=== PATIENT | male | born 1955 | race Caucasian/White ===

== ENCOUNTER → 2016-10-09 | Day surgery (SDC) | payer BC ==
[~2016-10-09] VITALS: Ht 170.2 cm; Wt 66.0 kg
[~2016-10-09] MED LIST: ACETAMINOPHEN 325 MG TAB PO PRN; ASCO500T3 PO; ASPI81TA28 PO; ATROPINE SULFATE 0.1 MG/ML 5ML SYR IV PRN; DC ALL ANTICOAGULANTS ONE; FENTANYL CITRATE INJ 50 MCG/1 ML 2 ML VIAL ONE; HEPARIN SOD (PORCINE) 1000 UNIT/ML 10 ML VIAL ONE; MIDAZOLAM HCL 1 MG/ML 2ML VIAL ONE; NITROGLYCERIN/D5W 100MCG/ML 20ML SYR ONE; NiCARDipine HCL INJ 2.5 MG/ML 10 ML AMP ONE; OMEG10007 PO; ONDANSETRON INJ 2 MG/ML 2 ML VIAL IV PRN; SODIUM CHLORIDE 0.9% 1000ML 1,000 ML IV SCH; SODIUM CHLORIDE 0.9% 1000ML 250 ML IV PRN; TUMERIC PO; ZINC50CA3 PO
[2016-10-09 09:08] VITALS: BP 161/101; PULSE 94; TEMP 36.6; O2SAT 96; Ht 170.2 cm; Wt 66.0 kg
--- NOTE | 2016-10-09 11:12 | History & Physical Bridge Note ---
H&P Re-Evaluation Bridge Note: I have examined the patient, reviewed the History & Physical and in the interval since the performance of the History & Physical I have noted the following changes of clinical significance: No changes noted
--- NOTE | 2016-10-09 11:22 | Cardiac Catheterization ---
Procedure Note Procedure Date Oct 09, 2016. Pre-Procedure Diagnosis Valvular Disease AUC Score 9 Post-Procedure Diagnosis Normal Coronary Arteries Procedure(s) Performed Coronary Angiography, Left Heart Cath, Right Heart Cath, LV Angiography, Aortography Early Childhood Education Instructor Dr. 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 ACC Data Cardiac Status Clinical evaluation leading to the procedure CAD Presntation: Stable angina Anginal Classification: CCS II Heart Failure: No Cardiogenic Shock w/in 24Hrs: No Cardiac Arrest w/in 24Hrs: No Imaging studies past 6 months: Yes Stress studies past 6 months: No Coronary Anatomy Dominant: Right Left Main (% Stenosis): Normal LAD (% Stenosis): Normal Circumflex (% Stenosis): Normal RCA (% Stenosis): Normal Left Ventricular Angiography EF (%): 60 Mitral Regurgitation: None Aortography Aortic Regurgitation: 1+ Diagnostic Physician's Name: Ricardo Montero, DO Status: Elective Closure Device Percutaneous Entry Location: Femoral Closure Device: none - manual hold Recommendations: valve replacement
--- NOTE | 2016-10-09 11:25 | Discharge Instructions ---
Discharge Instructions Procedure Procedure Date: Oct 09, 2016. Reason for Visit: Pre Op For Valve Replacement *Dr Montero Doing*. Discharge Discharge Date: Oct 09, 2016. Discharge Diagnosis: aortic stenosis Last Recorded Wt (Kilograms): 66 Anesthesia Post Anesthesia Instructions: If you have had General Anesthesia or IV Sedation: * Do not drive today. * Resume driving when surgeon permits. * Do not make important decisions or sign legal documents today. * Call surgeon for: 1. Temperature elevations greater than 101 degrees F. 2. Uncontrollable pain. 3. Excessive bleeding. 4. Persistent nausea and vomiting. 5. Medication intolerance (nausea, vomiting or rash). * For nausea and vomiting use only clear liquids such as: tea, soda, bouillon until nausea subsides, then gradually increase diet as tolerated. * If you have any concerns or questions, call your surgeon's office. If physician is unavailable and it is an emergency, call 911 or go to the nearest emergency room. Instructions Activity Recommendations: limitations Recommended Home Diet: resume previous diet Allergies: Coded Allergies: No Known Allergies (Unverified , 10/09/16) Provider Instructions ACTIVITY RECOMMENDATIONS: It is common to feel weak and fatigue for a few days. * Do not drive or operate any motorized equipment for the next three days. * Limit stair usage (2 or 3 trips a day only) for the next three days. * Do not lift anything heavier than 10 pounds for the next three days. * Do not engage in vigorous exercise or any sports for the next five days. * You may shower the day after your procedure, but do not immerse the area for three days. Cleanse the site gently with soap and water. SPECIAL CARE INSTRUCTIONS: * You may replace the pressure dressing or band-aid the morning after the procedure. * After your procedure, it is normal to have a small bruise or small lump at the site. Examine your site daily for any change in the bruise or lump, redness, swelling, drainage or numbness. Notify your doctor if any change. BLEEDING: * If there is a small amount of bleeding at the site, lie down and apply firm pressure with a clean cloth for ten minutes. When the bleeding stops, lie quietly keeping the procedure limb straight for six hours. Notify your doctor as soon as possible. * If the bleeding does not stop after ten minutes or if there is a large amount of bleeding or spurting, call 911 immediately. Continue to lie down and hold firm pressure until help arrives. SKIN IRRITATION: * You may experience some redness and/or swelling in the area where radiation was administered. If any skin irritation occurs, please contact your family physician. FOLLOW UP VISIT: Keep any scheduled doctor appointments. Follow Up Additional Instructions: [facility] for [facility] 10/11/16 [employer] [place] Recommendations: Call your doctor if: * Temperature above 101 degrees * Pain not relieved by pain medicine ordered * There is increased drainage or redness from any incision * You have any unanswered questions or concerns. Your Doctors Instructions noted above were prepared by provider Ricardo Montero. Patient Signature Section: Patient Instructions Signature Page Ezra Florentino Patient (or Guardian) Signature/Date: I have read and understand the instructions given to me by my caregivers. Caregiver/RN/Doctor Signature/Date: The above-named patient and/or guardian has received patient instructions on this date. + Original Patient Signature Page (only) stays with chart. Please make copy for patient.
[2016-10-09 11:33] LABS: ISTAT ARTERIAL BLOOD GAS HCO3 26 meq/L (19-24); ISTAT ARTERIAL BLOOD GAS PCO2 42 mmHg (35-46); ISTAT ARTERIAL BLOOD GAS PO2 36 mmHg (80-95); ISTAT CARBON DIOXIDE 27 mEq/l (24-31)
[2016-10-09 11:33] LABS: ISTAT ARTERIAL BLOOD GAS HCO3 25 meq/L (19-24); ISTAT ARTERIAL BLOOD GAS PCO2 41 mmHg (35-46); ISTAT ARTERIAL BLOOD GAS PO2 79 mmHg (80-95); ISTAT CARBON DIOXIDE 26 mEq/l (24-31)
[2016-10-09 15:30] VITALS: BP 136/66; PULSE 90; O2SAT 96
== END | disposition home or self-care (01) ==
LOC: C.CATH 08:20
PROVIDERS: ATTEND Thoracic Surgery (Cardiothoracic Vascular Surgery)
DX: I35.0 Nonrheumatic aortic (valve) stenosis (principal); I10 Essential (primary) hypertension